=== PATIENT | male | born 1980 ===

== ENCOUNTER 2018-01-31 09:43 | Emergency (ER) | payer SELFPAY ==
[2018-01-31 10:11] VITALS: BP 153/73
[2018-01-31] MEDS ORDERED: Ibuprofen TAB* 400 MG PO ONE (11:00)
--- NOTE | 2018-01-31 11:40 | RAD ---
Indication: Decreased range of motion. 4 views of the left knee demonstrates no fracture. No other bone or joint abnormality is identified. IMPRESSION: No fracture of left knee is noted.
--- NOTE | 2018-01-31 11:42 | UC ---
Knee Pain HPI - HPI Summary HPI Summary: Patient awoke with left knee pain today decreased range of motion, painful range of motion. No known injuries patient states he was fishing yesterday doing usual activities, works in a warehouse. Patient states he was bitten by a tick 4 weeks ago - History of Current Complaint Chief Complaint: UCLowerExtremity Stated Complaint: LT KNEE Time Seen by Provider: 01/31/18 10:53 Hx Obtained From: Patient Onset/Duration: Sudden Onset Severity Initially: Moderate Severity Currently: Moderate Pain Intensity: 8 Pain Scale Used: 0-10 Numeric Character: Aching, Throbbing Aggravating Factor(s): Movement, Weight Bearing Able to Bear Weight: Yes - Allergies/Home Medications Allergies/Adverse Reactions: Allergies Allergy/AdvReac Type Severity Reaction Status Date / Time No Known Allergies Allergy Verified 01/31/18 10:13 Home Medications: Home Medications Insulin Glargine,Hum.rec.anlog [Lantus] 40 unit SC BID 01/31/18 [History Confirmed 01/31/18] Insulin LISPRO* [HumaLOG*] 12 units SUBCUT DIRECTED 01/31/18 [History Confirmed 01/31/18] Simvastatin 20 mg PO DAILY 01/31/18 [History Confirmed 01/31/18] PMH/Surg Hx/FS Hx/Imm Hx Previously Healthy: No Endocrine History: Diabetes - Diabetes control his last hemoglobin A1c was over one year ago he believes it was 14 at that time patient does not have a primary care physician is he does not have insurance his insurance is going to become effective now on February 14 we will get him an appointment with her provider. Patient states his blood sugar this morning was 216 and went on to have [employer] donuts for breakfast and is refusing a fingerstick blood sugar right now, Dyslipidemia - Surgical History Surgical History: Yes Surgery Procedure, Year, and Place: L carpel tunnel; L4,L5, S1, S2 surgery, L elbow - Family History Known Family History: Positive: Unknown - Social History Occupation: Employed Full-time Lives: With Family Alcohol Use: Occasionally Substance Use Type: None Smoking Status (MU): Never Smoked Tobacco Review of Systems Constitutional: Negative Skin: Negative Eyes: Negative ENT: Negative Respiratory: Negative Cardiovascular: Negative Gastrointestinal: Negative Genitourinary: Negative Motor: Negative Neurovascular: Negative Musculoskeletal: Arthralgia - left knee Neurological: Negative Psychological: Negative Is Patient Immunocompromised?: No All Other Systems Reviewed And Are Negative: Yes Physical Exam Triage Information Reviewed: Yes Appearance: Well-Appearing, No Pain Distress, Obese Vital Signs: Initial Vital Signs Temp 98.1 F 01/31/18 10:03 Pulse 83 01/31/18 10:03 Resp 16 01/31/18 10:03 BP 153/73 01/31/18 10:03 Pulse Ox 96 01/31/18 10:03 Vital Signs Reviewed: Yes Eye Exam: Normal Eyes: Positive: Conjunctiva Clear ENT Exam: Normal ENT: Positive: Normal ENT inspection, Hearing grossly normal, Pharynx normal. Negative: Nasal congestion, TMs normal, Trismus, Muffled voice, Hoarse voice, Sinus tenderness Dental Exam: Normal Neck exam: Normal Neck: Positive: Supple, Nontender, No Lymphadenopathy Respiratory Exam: Normal Respiratory: Positive: Chest non-tender, Lungs clear, Normal breath sounds, No respiratory distress, No accessory muscle use Cardiovascular Exam: Normal Cardiovascular: Positive: RRR, No Murmur, Pulses Normal, Brisk Capillary Refill Musculoskeletal Exam: Other Musculoskeletal: Positive: Strength Intact, No Edema, ROM Limited @ - Does have full passive range of motion, does complain of pain Neurological Exam: Normal Neurological: Positive: Alert, Muscle Tone Normal Psychological Exam: Normal Skin Exam: Normal Diagnostics - Radiology No standard instances Xray Interpretation: No Acute Changes Radiology Interpretation Completed By: Radiologist Knee Pain Course/Dx - Course Course Of Treatment: Will draw uric acid and Lyme titer. Well start doxycycline. patient is able to make a MD appoint for when insurance begins on February 14. Patient will follow BP in next 2 weeks - Differential Dx/Diagnosis Provider Diagnoses: left knee pain, lyme arthritis, hypertension, hyperglycemia in poor control Discharge - Sign-Out/Discharge Documenting (check all that apply): Discharge/Admit/Transfer - Discharge Plan Condition: Critical Disposition: HOME Prescriptions: DOXYcycline CAP(*) [DOXYcycline 100MG CAP(*)] 100 mg PO BID #42 cap Patient Education Materials: Ibuprofen (By mouth), Lyme Disease (ED), DASH Eating Plan (ED), Hypertension (ED) Referrals: Non Staff,Doctor [Primary Care Provider] - Additional Instructions: Follow with your provider as planned on February. Return for any concerns - Billing Disposition and Condition Condition: CRITICAL Disposition: HOME
--- NOTE | 2018-02-01 08:33 | UC ---
- Progress Note Progress Note: Uric acid 5.6 no changes Ljj 02/01/2018 Discharge - Sign-Out/Discharge Documenting (check all that apply): Post-Discharge Follow Up - Discharge Plan Condition: Critical Disposition: HOME Prescriptions: DOXYcycline CAP(*) [DOXYcycline 100MG CAP(*)] 100 mg PO BID #42 cap Patient Education Materials: Ibuprofen (By mouth), Lyme Disease (ED), DASH Eating Plan (ED), Hypertension (ED) Referrals: Non Staff,Doctor [Primary Care Provider] - Additional Instructions: Follow with your provider as planned on February. Return for any concerns - Billing Disposition and Condition Condition: CRITICAL Disposition: HOME
== END 2018-01-31 12:25 | disposition home or self-care (01) ==
LOC: UCCORT 09:43
DX: M25.562 Pain in left knee (principal); A69.23 Arthritis due to Lyme disease; I10 Essential (primary) hypertension; E11.65 Type 2 diabetes mellitus with hyperglycemia
CPT/HCPCS: 36415; 84550; 86618; 99202; A9270-GY; G0463